=== PATIENT | female | born 1960 | race Caucasian/White ===

== ENCOUNTER 2019-06-15 19:03 | Emergency (ER) | payer BC ==
--- OUTSIDE RECORDS SUMMARY | 2019-06-15 19:20 | XMS REPORT | Continuity of Care Document ---
:1960 External Reference #:[id number] Author Name GEORGE Perdue (transmitted by agent of provider Kobi Lujan) Address [address] [place] [address] Care Team Providers Name Role Phone Geovanni Mullen MD - Gastroenterology Care Team Information Wire Machine Operator [phone] Althea Arrington PA - Physician Mesh Man Care Team Information Wire Machine Operator Althea Arrington PA - Physician Mesh Man Care Team Information Wire Machine Operator [phone] Problems Active Problems Provider Date Migraine Onset: 05/10/2013 Gynecologic examination Onset: 05/10/2013 Hypothyroidism Onset: 05/10/2013 Perioral dermatitis GEORGE Perdue Onset: 06/06/2018 Mitral valve prolapse GEORGE Perdue Onset: 07/28/2018 Intermittent palpitations GEORGE Perdue Onset: 06/07/2019 Social History Type Date Description Comments Sex Unknown ETOH Use Occasionally consumes alcohol Tobacco Use Start: Unknown Patient has never smoked Recreational Drug Use Never Used Drugs Smoking Status Reviewed: 06/07/19 Patient has never smoked Exercise Type/Frequency Exercises regularly Exercise Type/Frequency Exercises regularly Allergies, Adverse Reactions, Alerts Active Allergies Reaction Severity Comments Date Penicillin 12/07/2017 Penicillin 05/06/2018 Medications Active Medications SIG Qnty Indications Ordering Provider Date Imitrex take 1 by mouth Unknown 100mg Tablets as need for migraine, may repeat after 2 hours, maximum 2 tablets in 24 hours, maximum 2 days a week. Immunizations CPT Code Status Date Vaccine Lot # [id number] Given 12/06/2012 Tdap - Tetanus/Diptheria/Acellular Pertussis [id number] Refused 03/02/2018 Influenza Virus Vaccine, Quadrivalent, Split, Im Use 6-35mo Vital Signs Date Vital Result Comment 06/07/2019 4:07pm Height 67.6 inches 5'7.60" Weight 133.38 lb BP Systolic Sitting 126 mmHg BP Diastolic Sitting 76 mmHg Respiratory Rate 12 /min Body Temperature 98.8 F BMI (Body Mass Index) 20.5 kg/m2 08/12/2018 1:54pm Height 68 inches 5'8" Weight 136.00 lb no shoes Heart Rate 80 /min BP Systolic Sitting 150 mmHg lue reg cuff BP Diastolic Sitting 90 mmHg lue reg cuff BP Systolic Standing 154 mmHg lue reg cuff BP Diastolic Standing 90 mmHg lue reg cuff Respiratory Rate 16 /min BMI (Body Mass Index) 20.7 kg/m2 Results Test Acquired Date Facility Test Result H/L Range Note CBC Auto 12/23/2018 [facility] White Blood 4.4 10^3/uL Normal 3.5-10.[address] [place] [address] [phone] Red Blood Count 5.02 10^6/uL High 3.70-4.87 Hemoglobin 15.9 g/dL Normal 12.0-16.0 Hematocrit 46 % Normal 35-47 Mean Corpuscular Volume 92 fL Normal 80-97 Mean Corpuscular Hemoglobin 32 pg High 27-31 Mean Corpuscular HGB Conc 35 g/dL Normal 31-36 Red Cell Distribution Width 13 % Normal 10-15 Platelet Count 180 10^3/uL Normal 150-450 Mean Platelet Volume 7.2 fL Low 7.4-10.4 Abs Neutrophils 2.5 10^3/uL Normal 1.5-7.7 Abs Lymphocytes 1.4 10^3/uL Normal 1.0-4.8 Abs Monocytes 0.3 10^3/uL Normal 0-0.8 Abs Eosinophils 0.2 10^3/uL Normal 0-0.6 Abs Basophils 0.0 10^3/uL Normal 0-0.2 Abs Nucleated RBC 0.0 10^3/uL Granulocyte % 56.6 % Lymphocyte % 31.5 % Monocyte % 6.9 % Eosinophil % 4.4 % Basophil % 0.6 % Nucleated Red Blood Cells % 0.1 Procedures Date Code Description Status 06/21/2018 [id number] Mammogram Completed 04/02/2014 [id number] Colonoscopy Completed Medical Devices Description No Information Available Encounters Description No Information Available Assessments Date Code Description Provider 06/07/2019 Z00.01 Adult health examination GEORGE Perdue 06/07/2019 Z12.31 Screening mammography GEORGE Perdue 06/07/2019 D48.5 Neoplasm of uncertain behavior of skin GEORGE Perdue Plan of Treatment No Information Available Functional Status Functional Condition Comment Date Status Soft Contacts Active Mental Status Description No Information Available Referrals Description No Information Available
--- OUTSIDE RECORDS SUMMARY | 2019-06-15 19:20 | XMS REPORT | Continuity of Care Document ---
:1960 External Reference #:[id number] Author Name GEORGE Perdue (transmitted by agent of provider Kobi Lujan) Address [address] [place] [address] Care Team Providers Name Role Phone Geovanni Mullen MD - Gastroenterology Care Team Information Specimen Collector Althea Arrington PA - Physician Cribbing Setter Care Team Information Specimen Collector Althea Arrington PA - Physician Cribbing Setter Care Team Information Specimen Collector Problems Active Problems Provider Date Migraine Onset: 05/10/2013 Gynecologic examination Onset: 05/10/2013 Hypothyroidism Onset: 05/10/2013 Perioral dermatitis GEORGE Perdue Onset: 06/06/2018 Mitral valve prolapse GEORGE Perdue Onset: 07/28/2018 Intermittent palpitations EGORGE Perdue Onset: 06/07/2019 Social History Type Date [...] CPT Code Status Date Vaccine Lot # [id number] Given 12/06/2012 Tdap - Tetanus/Diptheria/Acellular Pertussis [id number] Refused 03/02/2018 Influenza Virus Vaccine, Quadrivalent, Split, [...] Result H/L Range Note CBC Auto 12/23/2018 [facility] White Blood 4.4 10^3/uL Normal 3.5-10.[address] [place] [address] [phone] Red Blood Count 5.02 10^6/uL High 3.70-4.87 [...] 0.1 Procedures Date Code Description Status 06/21/2018 [id number] Mammogram Completed 04/02/2014 [id number] Colonoscopy Completed Medical Devices Description No Information Available Encounters Description No Information Available Assessments Date Code Description Provider 06/07/2019 Z00.01 Adult health examination GEORGE Perdue 06/07/2019 Z12.31 Screening mammography GEORGE Perdue 06/07/2019 D48.5 Neoplasm of uncertain behavior of skin GEORGE Perdue Plan of Treatment Future Appointment(s):07/06/2019 11:30 am - GEORGE Perdue at [facility]09/2019 - Althea Arrington PAZ00.01 Adult health [id number] Screening mammographyNew Xrays:bilateral mammogram, Ordered: 06/07/19D48.5 Neoplasm of uncertain behavior of skin Functional Status Functional Condition Comment Date Status Soft Contacts Active Mental Status Description No Information Available Referrals Description No Information Available
[2019-06-15 20:10] VITALS: BP 160/86
--- NOTE | 2019-06-15 20:18 | UC ---
Upper Extremity HPI - HPI Summary HPI Summary: 58-year-old female who had approximate 45 pounds of barbells fell onto her right hand and forearm 1 week ago. She's had significant bruising however now after one week she has continued pain. - History of Current Complaint Chief Complaint: UCUpperExtremity Stated Complaint: RIGHT HAND/ARM INJURY Time Seen by Provider: 06/15/19 20:14 Hx Obtained From: Patient ?: No Onset/Duration: Sudden Onset, Other - Happened one week ago Severity Initially: Moderate Severity Currently: Mild Pain Intensity: 5 Character: Dull, Aching Aggravating Factor(s): Movement Alleviating Factor(s): Rest Associated Signs And Symptoms: Positive: Bruising - Allergies/Home Medications Allergies/Adverse Reactions: Allergies Allergy/AdvReac Type Severity Reaction Status Date / Time Penicillins Allergy Rash Verified 06/15/19 20:03 Home Medications: Home Medications SUMAtriptan TAB* [Imitrex TAB*] 1 tab BID PRN 06/15/19 [History Confirmed ] PMH/Surg Hx/FS Hx/Imm Hx Previously Healthy: Yes - Surgical History Surgical History: None - Family History Known Family History: Positive: Non-Contributory - Social History Alcohol Use: None Substance Use Type: None Smoking Status (MU): Never Smoked Tobacco Review of Systems All Other Systems Reviewed And Are Negative: Yes Skin: Positive: Bruising - Bruising to forearm and right hand. Musculoskeletal: Positive: Other: - Tenderness on palpation of the dorsum of the right hand and the mid right forearm. Is Patient Immunocompromised?: No Physical Exam Triage Information Reviewed: Yes Appearance: Well-Appearing, No Pain Distress, Well-Nourished Vital Signs: Initial Vital Signs Temp 98.4 F 06/15/19 20:04 Pulse 54 06/15/19 20:04 Resp 16 06/15/19 20:04 BP 160/86 06/15/19 20:04 Pulse Ox 100 06/15/19 20:04 Vital Signs Reviewed: Yes Musculoskeletal: Positive: Strength Intact, ROM Intact, Other: - Good peripheral pulses, neuro sensation and capillary refill, bruising to the midportion of her right forearm and dorsum of her right hand. No swelling, erythema or deformity is noted. She has good fingerstrength against resistance. Neurological Exam: Normal Psychological Exam: Normal Skin: Positive: Other Upper Extremity Course/Dx - Course Course Of Treatment: X-ray right hand: Negative X-ray right forearm: Negative Both x-rays were interpreted by myself and Dr. Mcarthur. The patient may apply heat to the bruised areas and take Tylenol for pain. Definite follow-up with the orthopedist if no improvement in 3 or 4 days. I advised the patient the radiologist would read the x-ray tomorrow and we would contact her if there are any discrepancies. - Differential Dx/Diagnosis Provider Diagnosis: Contusion of right hand, Contusion of right forearm Discharge ED - Sign-Out/Discharge Documenting (check all that apply): Patient Departure All imaging exams completed and their final reports reviewed: No - Discharge Plan Condition: Good Disposition: HOME Patient Education Materials: Contusion in Adults (ED) Referrals: Althea Arrington PA [Primary Care Provider] - Coleman May MD [Medical Doctor] - Additional Instructions: Tylenol for pain. May apply heat to the bruised areas. Follow-up with orthopedist if continued concerns in 5-7 days. - Billing Disposition and Condition Condition: GOOD Disposition: Home
--- NOTE | 2019-06-16 12:48 | UC ---
- Progress Note Progress Note: Reviewed radiology report of forearm and hand: no fracture; wet read correct. Course/Dx - Diagnoses Provider Diagnoses: Contusion of right hand, Contusion of right forearm Discharge ED - Sign-Out/Discharge Documenting (check all that apply): Post-Discharge Follow Up All imaging exams completed and their final reports reviewed: Yes - Discharge Plan Condition: Good Disposition: HOME Patient Education Materials: Contusion in Adults (ED) Referrals: Althea Arrington PA [Primary Care Provider] - Coleman May MD [Medical Doctor] - Additional Instructions: Tylenol for pain. May apply heat to the bruised areas. Follow-up with orthopedist if continued concerns in 5-7 days. - Billing Disposition and Condition Condition: GOOD Disposition: Home
== END 2019-06-15 21:20 | disposition home or self-care (01) ==
LOC: UCCORT 19:03
DX: S50.11XA Contusion of right forearm, initial encounter (principal); S60.221A Contusion of right hand, initial encounter; Z88.0 Allergy status to penicillin; W22.8XXA Striking against or struck by other objects, initial encounter; Y92.9 Unspecified place or not applicable
CPT/HCPCS: 99211; G0463